=== PATIENT | male | born 1985 | race Hispanic/Latino ===

== ENCOUNTER → 2023-10-27 | Day surgery (SDC) | payer BC ==
[~2023-10-27] MED LIST: DEXMEDETOMIDINE HCL 200 MCG/2 ML VIAL ONE; HEMORRHOID 1%-156 GM TOP; HYDROCHLOROTHIA25 MG PO; LIDOCAINE HCL 2% LOCAL INJ 5 ML SDV VIAL INJ ONE; LOSARTAN POTAS100 MG PO; MIDAZOLAM HCL 2 MG/2 ML VIAL ONE; PROPOFOL IV EMULSION 10 MG/ML 20 ML VIAL ONE; SODIUM CHLORIDE 0.9% INJ 100 ML BAG ONE
[2023-10-27] MEDS: LACTATED RINGER'S 1,000 ML ONE (06:30)
[2023-10-27 07:58] VITALS: TEMP 97
[2023-10-27 08:25] VITALS: BP 135/80; PULSE 85; RESP 18; O2SAT 97
== END | disposition home or self-care (01) ==
LOC: OR 05:44
PROVIDERS: ATTEND Internal Medicine Gastroenterology
DX: K92.1 Melena (principal); K64.8 Other hemorrhoids; K21.9 Gastro-esophageal reflux disease without esophagitis; I10 Essential (primary) hypertension; Z78.9 Other specified health status; E66.01 Morbid (severe) obesity due to excess calories; G89.29 Other chronic pain; Z01.810 Encounter for preprocedural cardiovascular examination; Z79.899 Other long term (current) drug therapy; Z68.41 Body mass index [BMI] 40.0-44.9, adult
CPT/HCPCS: 45378; 93005; J2001; J2250; J2704; J7050; J7121